=== PATIENT | female | born 1935 | race Two or more races ===

== ENCOUNTER 2016-05-16 16:02 | Emergency (ER) | payer MEDICAID ==
[~2016-05-16] VITALS: Ht 162.6 cm; Wt 56.7 kg
--- NOTE | 2016-05-16 16:05 | NUR ---
BIB SELF FOR FALL AND ELBOW AND RIB PAIN, PATIENT IS VERBALLY RESPONSIVE, A/OX 4, FAMILY AT BEDSIDE, WILL CONTINUE TO MONITOR CLOSELY.
[2016-05-16] MEDS ORDERED: HYDROCODONE/APAP 5/325MG 1 EACH TABLET ONE (16:26)
[2016-05-16] MEDS ORDERED: ONDANSETRON 4 MG TAB.RAPDIS ONE (16:26)
[2016-05-16] MEDS: ONDANSETRON 4 MG TAB.RAPDIS SL ONE (16:33)
[2016-05-16] MEDS: HYDROCODONE/APAP 5/325MG 1 EACH TABLET PO ONE (16:33)
[2016-05-16 17:54] VITALS: BP 146/87
--- NOTE | 2016-05-16 17:54 | NUR ---
Patient discharged to home in stable condition. Written and verbal after care instructions given. Patient verbalizes understanding of instruction.
== END 2016-05-16 17:55 | disposition home or self-care (01) ==
LOC: ER 16:09
DX: S20.211A Contusion of right front wall of thorax, initial encounter (principal); S50.01XA Contusion of right elbow, initial encounter; W01.0XXA Fall on same level from slipping, tripping and stumbling without subsequent striking against object, initial encounter; Y92.89 Other specified places as the place of occurrence of the external cause; Y93.89 Activity, other specified; Y99.8 Other external cause status
CPT/HCPCS: 71250-TC; 73080-TC; A4606; Q0162; Z7610

== ENCOUNTER 2017-10-14 11:58 | Inpatient (IN) | payer MEDICAID ==
[~2017-10-14] VITALS: Ht 157.5 cm; Wt 50.8 kg
[2017-10-14] MEDS ORDERED: IV NS 0.9% 1,000 ML BAG IV ONE (12:30)
[2017-10-14 13:12] LABS: CALCIUM, SERUM 8.9 mg/dL (8.5-10.1); CARBON DIOXIDE 30 mmol/L (21-32); CHLORIDE 104 mmol/L (98-107); CREATININE 1.1 mg/dL (0.6-1.3); GLUCOSE 101 mg/dL (74-106); POTASSIUM 3.9 mmol/L (3.5-5.1); SODIUM SERUM 138 mmol/L (136-145); UREA NITROGEN, BLOOD 25 mg/dL (7-18)
[2017-10-14 13:13] LABS: WHITE BLOOD COUNT (AUTO) 1.7 K/uL (4.3-11.0)
[2017-10-14 13:14] LABS: HEMATOCRIT 20 % (33-45); HEMOGLOBIN 6.5 g/dL (11.5-14.8)
[2017-10-14 13:19] LABS: MEAN CORPUSCULAR HEMOGLOBIN 41 PG (26.0-33.0); MEAN CORPUSCULAR HGB CONC 33 g/dl (31.0-36.0); MEAN CORPUSCULAR VOLUME 122 fL (82-100); NEUTROPHILS % (AUTO) 64.4 % (43.0-81.0); PLATELET COUNT (AUTO) 130 /CMM (150-450); RDW COEFFICIENT OF VARIATION 18.8 (11.5-15.0)
[2017-10-14 13:20] LABS: BASOPHILS % (AUTO) 1.6 % (0.0-2.0); EOSINOPHILS % (AUTO) 2.7 % (0.0-6.0); LYMPHOCYTES % (AUTO) 25.7 % (20.0-44.0); MONOCYTES % (AUTO) 5.6 % (2.0-12.0)
[2017-10-14 13:21] LABS: TROPONIN I < 0.017 ng/mL (0.00-0.056)
[2017-10-14 13:52] LABS: BAND % (MANUAL) 7 % (0.0-5.0); EOSINOPHILS % (MANUAL) 2 % (0-4); LYMPHOCYTES % (MANUAL) 24 % (16-48); MONOCYTES % (MANUAL) 3 % (0-11.0); NEUTROPHILS % (MANUAL) 64 (42-76)
[2017-10-14] MEDS ORDERED: CARV6.252 PO (15:20)
[2017-10-14] MEDS ORDERED: CALC0.253 PO (15:20)
[2017-10-14] MEDS ORDERED: FOLI1TAB16 PO (15:20)
[2017-10-14] MEDS ORDERED: LEVO75TA7 PO (15:20)
[2017-10-14] MEDS ORDERED: PENI500T PO (15:20)
[2017-10-14 16:00] VITALS: BP 145/65
[2017-10-14] MEDS ORDERED: HYDROCODONE/APAP 5/325MG 1 EACH TABLET PO PRN (16:30)
[2017-10-14] MEDS ORDERED: MAGNESIUM HYDROXIDE 30 ML UDC PO PRN (16:30)
[2017-10-14] MEDS ORDERED: MAG HYDROX/AL HYDROX/SIMETH 30 ML UDC PO PRN (16:30)
[2017-10-14] MEDS ORDERED: ACETAMINOPHEN 325 MG TABLET PO PRN (16:30)
[2017-10-14] MEDS ORDERED: Z GUARD REMEDY 2 OZ OINT TP PRN (16:30)
[2017-10-14] MEDS ORDERED: ONDANSETRON HCL/PF 4 MG/2 ML VIAL IVP PRN (16:30)
[2017-10-14] MEDS: PENICILLIN V POTASSIUM 500 MG TABLET PO SCH (17:00)
[2017-10-14] MEDS: IV NS 0.9% 1,000 ML IV PRN (17:32)
[2017-10-14] MEDS: CARVEDILOL 6.25 MG TABLET PO SCH (17:39)
[2017-10-14 20:00] VITALS: BP 123/55
[2017-10-14 21:23] LABS: BILIRUBIN,DIRECT 0.4 mg/dL (0.0-0.2); BILIRUBIN,TOTAL 1.3 mg/dL (0.2-1.0); TOTAL PROTEIN, SERUM 6.2 g/dL (6.4-8.2)
[2017-10-15] VITALS (9 sets, daily range): BP systolic 118–146; BP diastolic 49–70
[2017-10-15] MEDS: IV NS 0.9% 1,000 ML IV PRN (05:01)
[2017-10-15 06:08] LABS: APPEARANCE,URINE CLEAR (CLEAR); BILIRUBIN,URINE NEGATIVE (NEGATIVE); BLOOD, URINE NEGATIVE Ery/uL (NEGATIVE); COLOR,URINE YELLOW (YELLOW); KETONES,URINE NEGATIVE (NEGATIVE); LEUKOCYTE ESTERASE ,URINE NEGATIVE (NEGATIVE); NITRITE, URINE NEGATIVE (NEGATIVE); PROTEIN,URINE NEGATIVE (NEGATIVE); UGLUCOSE NEGATIVE (NEGATIVE)
[2017-10-15 06:31] LABS: BASOPHILS % (AUTO) 0.8 % (0.0-2.0); EOSINOPHILS % (AUTO) 3.9 % (0.0-6.0); LYMPHOCYTES # (AUTO) 0.4 /CMM (0.8-4.8); LYMPHOCYTES % (AUTO) 27.6 % (20.0-44.0); MEAN CORPUSCULAR HEMOGLOBIN 40 PG (26.0-33.0); MEAN CORPUSCULAR HGB CONC 32 g/dl (31.0-36.0); MEAN CORPUSCULAR VOLUME 123 fL (82-100); MONOCYTES # (AUTO) 0.1 /CMM (0.1-1.30); MONOCYTES % (AUTO) 7.3 % (2.0-12.0); NEUTROPHILS # (AUTO) 0.8 /CMM (1.8-8.9); NEUTROPHILS % (AUTO) 60.4 % (43.0-81.0); PLATELET COUNT (AUTO) 126 /CMM (150-450); RDW COEFFICIENT OF VARIATION 19.7 (11.5-15.0)
[2017-10-15 06:34] LABS: CALCIUM, SERUM 7.8 mg/dL (8.5-10.1); CARBON DIOXIDE 29 mmol/L (21-32); CHLORIDE 108 mmol/L (98-107); GLUCOSE 83 mg/dL (74-106); MAGNESIUM 1.8 mg/dL (1.8-2.4); PHOSPHORUS 3.7 mg/dL (2.5-4.9); POTASSIUM 4.1 mmol/L (3.5-5.1); SODIUM SERUM 142 mmol/L (136-145); UREA NITROGEN, BLOOD 25 mg/dL (7-18)
[2017-10-15 07:16] LABS: CHOLESTEROL 82 mg/dL (<200); HDL CHOLESTEROL 41 mg/dL (40-60); LDL 51 mg/dL (0-99); THYROID STIMULATING HORMONE 8.138 uIU/mL (0.358-3.74); TRIGLYCERIDES 37 mg/dL (30-150)
[2017-10-15 07:20] LABS: HEMATOCRIT 18 % (33-45); HEMOGLOBIN 5.7 g/dL (11.5-14.8); RED BLOOD CELL COUNT(AUTO) 1.44 MIL/uL (4.0-5.2); WHITE BLOOD COUNT (AUTO) 1.3 K/uL (4.3-11.0)
[2017-10-15] MEDS ORDERED: LEVOTHYROXINE SODIUM 75 MCG TABLET PO SCH (07:30)
[2017-10-15] MEDS ORDERED: PANTOPRAZOLE 40 MG TABLET.DR PO SCH (07:30)
[2017-10-15] MEDS: PENICILLIN V POTASSIUM 500 MG TABLET PO SCH ×2 (08:40→16:04)
[2017-10-15] MEDS: CARVEDILOL 6.25 MG TABLET PO SCH ×2 (08:43→16:04)
[2017-10-15] MEDS ORDERED: CALCITRIOL 0.25 MCG CAPSULE PO SCH (09:00)
[2017-10-15] MEDS ORDERED: FOLIC ACID 1 MG TABLET PO SCH ×2 (09:00→15:00)
[2017-10-15 09:39] LABS: EOSINOPHILS % (MANUAL) 2 % (0-4); LYMPHOCYTES % (MANUAL) 30 % (16-48); MONOCYTES % (MANUAL) 4 % (0-11.0); NEUTROPHILS % (MANUAL) 64 (42-76)
[2017-10-15 09:48] LABS: BACTERIA,URINE None seen /HPF (None Seen); RBC,URINE NONE SEEN /HPF (0-2); SQUAMOUS EPITHELIAL CELL,UR Few /HPF (None Seen); WBC,URINE NONE SEEN /HPF (0-3)
[2017-10-15] MEDS ORDERED: methylPREDNISolone SOD SUCC 125 MG/2ML VIAL IV SCH (15:00)
[2017-10-15 15:55] LABS: IRON, SERUM 107 ug/dl (50-175); TOTAL IRON BINDING CAPACITY 188 ug/dl (250-450)
[2017-10-15 16:25] LABS: FERRITIN 1368 ng/mL (8-388)
[2017-10-16] MEDS ORDERED: LEVOTHYROXINE SODIUM 88 MCG TABLET PO SCH (07:30)
== END 2017-10-15 17:57 | disposition home or self-care (01) | DRG 694 ==
LOC: ER 11:59 → TELE-TD 15:04
PROVIDERS: ADMIT Registered Nurse; ATTEND Registered Nurse
PROC: 30233N1 Transfusion of Nonautologous Red Blood Cells into Peripheral Vein, Percutaneous Approach (ICD-10-PCS; principal; 2017-10-15)
DX: D46.9 Myelodysplastic syndrome, unspecified (principal); E43 Unspecified severe protein-calorie malnutrition; D61.818 Other pancytopenia; E86.0 Dehydration; D59.5 Paroxysmal nocturnal hemoglobinuria [Marchiafava-Micheli]; E03.9 Hypothyroidism, unspecified; J06.9 Acute upper respiratory infection, unspecified; I10 Essential (primary) hypertension; Z68.20 Body mass index [BMI] 20.0-20.9, adult; R53.1 Weakness
CPT/HCPCS: 36415; 70450-TC; 71045-TC; 80048-TC; 80061-TC; 80076-TC; 81000-TC; 82728-TC; 82746; 83540-TC; 83605-TC; 83615-TC; 83735-TC; 84100-TC; 84443-TC; 84484-TC; 85025-TC; 85045-TC; 85730-TC; 86850-TC; 86921-TC; 87040-TC; 87081-TC; 87400; 93307-TC; 93880-TC; A4606; J7030; J7050; P9016-BL; Z7610

== ENCOUNTER 2019-02-05 10:11 | Inpatient (IN) | payer MEDICAID ==
[2019-02-05] VITALS (8 sets, daily range): BP systolic 89–119; BP diastolic 52–67
[~2019-02-05] VITALS: Ht 165.1 cm; Wt 49.4 kg
[~2019-02-05 10:11] MED LIST: CALC0.253 PO; CARV6.252 PO; FOLI1TAB16 PO; LEVO75TA7 PO; PENI500T PO
--- NOTE | 2019-02-05 10:14 | NUR ---
PT BIBRA FROM HOME C/O LEFT SHOULDER AND BACK PAIN, PT IS AAOX4, NOT IN RESPIRATORY DISTRESS, HOOKED TO MONITOR, KEPT RESTED AND COMFORTABLE, WILL CONTINUE TO MONITOR.
--- NOTE | 2019-02-05 10:24 | NUR ---
SEEN AND EXAMINED BY .
--- NOTE | 2019-02-05 10:35 | NUR ---
IV LINE ESTABLISHED, BLOOD DRAWN AND SENT TO LAB.
[2019-02-05 10:38] LABS: BASOPHILS % (AUTO) 1.6 % (0.0-2.0); EOSINOPHILS % (AUTO) 0.9 % (0.0-6.0); LYMPHOCYTES # (AUTO) 0.5 /CMM (0.8-4.8); LYMPHOCYTES % (AUTO) 17.5 % (20.0-44.0); MEAN CORPUSCULAR HGB CONC 33 g/dl (31.0-36.0); MEAN CORPUSCULAR VOLUME 106 fL (82-100); MONOCYTES % (AUTO) 0.3 % (2.0-12.0); NEUTROPHILS # (AUTO) 2.5 /CMM (1.8-8.9); NEUTROPHILS % (AUTO) 79.7 % (43.0-81.0); PLATELET COUNT (AUTO) 139 /CMM (150-450); WHITE BLOOD COUNT (AUTO) 3.1 K/uL (4.3-11.0)
[2019-02-05 10:44] LABS: RED BLOOD CELL COUNT(AUTO) 1.63 MIL/uL (4.0-5.2)
[2019-02-05 10:45] LABS: HEMATOCRIT 17 % (33-45); HEMOGLOBIN 5.6 g/dL (11.5-14.8)
[2019-02-05 10:52] LABS: ALANINE AMINOTRANSFERASE 21 U/L (12-78); ALBUMIN 3.6 g/dL (3.4-5.0); ALKALINE PHOSPHATASE 153 U/L (46-116); ASPARTATE AMINOTRANSFERASE 33 U/L (15-37); BILIRUBIN,DIRECT 0.6 mg/dL (0.0-0.2); BILIRUBIN,TOTAL 1.4 mg/dL (0.2-1.0); CALCIUM, SERUM 12.9 mg/dL (8.5-10.1); CARBON DIOXIDE 37 mmol/L (21-32); CHLORIDE 95 mmol/L (98-107); CREATININE 1.8 mg/dL (0.6-1.3); GLUCOSE 121 mg/dL (74-106); POTASSIUM 4.1 mmol/L (3.5-5.1); SODIUM SERUM 138 mmol/L (136-145); TOTAL PROTEIN, SERUM 6.7 g/dL (6.4-8.2)
[2019-02-05 10:54] LABS: UREA NITROGEN, BLOOD 89 mg/dL (7-18)
--- NOTE | 2019-02-05 11:00 | NUR ---
AT BEDSIDE FOR EVAL
--- NOTE | 2019-02-05 11:08 | NUR ---
PT IS WHEELED TO CT SCAN VIA [facility].
[2019-02-05] MEDS ORDERED: HYDROCODONE/APAP 5/325MG 1 EACH TABLET ONE ×2 (11:25→11:28)
[2019-02-05] MEDS ORDERED: SENN-168 PO (11:27)
[2019-02-05] MEDS ORDERED: METO25TA6 PO (11:27)
[2019-02-05] MEDS ORDERED: CHOL200026 PO (11:27)
[2019-02-05] MEDS ORDERED: METO50TA16 PO (11:27)
[2019-02-05] MEDS ORDERED: IV NS 0.9% 500 ML BAG IV ONE (11:30)
[2019-02-05] MEDS ORDERED: HYDROCODONE/APAP 5/325MG 1 EACH TABLET PO ONE (11:30)
[2019-02-05 11:34] LABS: BAND % (MANUAL) 10 % (0.0-5.0); BASOPHILS % (MANUAL) 1 % (0.0-2.0); EOSINOPHILS % (MANUAL) 1 % (0-4); LYMPHOCYTES % (MANUAL) 17 % (16-48); METAMYELOCYTES % 1 % (0-0); MONOCYTES % (MANUAL) 2 % (0-11.0); MYELOCYTES % 1 % (0-0); NEUTROPHILS % (MANUAL) 67 (42-76)
[2019-02-05] MEDS ORDERED: ONDANSETRON HCL/PF 4 MG/2 ML VIAL IVP PRN (12:00)
[2019-02-05] MEDS ORDERED: Z GUARD REMEDY 2 OZ OINT TP PRN (12:00)
[2019-02-05] MEDS ORDERED: MAGNESIUM HYDROXIDE 30 ML UDC PO PRN (12:00)
[2019-02-05] MEDS ORDERED: MAG HYDROX/AL HYDROX/SIMETH 30 ML UDC PO PRN (12:00)
--- NOTE | 2019-02-05 12:09 | NUR ---
REPORT GIVEN TO EMILIO LEACH FOR MARY.
[2019-02-05] MEDS: IV NS 0.9% 1,000 ML IV PRN (13:11)
[2019-02-05] MEDS: CHOLECALCIFEROL 1,000 UNIT TABLET (VIT D3) PO SCH (13:28)
--- NOTE | 2019-02-05 16:18 | NUR ---
GUEST SERVICES AGENT ADMITTING NOTES ADMITTED PT TO UNIT VIA GURNEY AT 1240 ACCOMPANIED BY ER NURSE WARD RAMON. PT IS A/O X4. ABLE TO MAKE NEEDS KNOW. PT ORIENTED TO ROOM AND STAFF. V/S TAKEN AND RECORDED. PHOTOS OF SKIN ISSUES TAKEN AND FILED IN CHART. PT PLACED ON 02 VIA N/C AT 2LPM, TOLERATING WELL WITH NO C/O SOB. ON TELE-MONITORING WITH CURRENT READING SHOWS A-FIB CONTROLLED, NO C/O CARDIAC DISTRESS VOICED. PT WITH IV ACCESS NOTED ON RAC G #18, IVF OF NS @ 100ML/HR STARTED PER MD ORDER. SAFETY MEASURES INITIATED. BED PLACED IN LOWEST LOCKED POSITION WITH SR UP X2. CALL LIGHT WITHIN EASY REACH OF PT. ADVISED PT TO CALL FOR STAFF WHEN OOB. WILL CONTINUE TO MONITOR PT ACCORDINGLY.
--- NOTE | 2019-02-05 16:37 | NUR ---
RN NOTES RECEIVED CALL FROM LAB THAT PT IS + FOR ANTIBODIES AND WILL TAKE TIME FOR THE RESULTS OF ANTIBODIES TO COME. DR MIGUEL MADE AWARE WITH ORDER TO CONTINUE MONITOR PT AND F/U WITH LAB WHEN BLOOD PRBC IS READY. WILL ENDORSE TO INCOMING SHIFT.
[2019-02-05] MEDS: PENICILLIN V POTASSIUM 500 MG TABLET PO SCH (16:51)
[2019-02-05] MEDS ORDERED: CARVEDILOL 6.25 MG TABLET PO SCH (17:00)
[2019-02-05] MEDS: METOPROLOL TARTRATE 25 MG TABLET PO SCH (17:26)
--- NOTE | 2019-02-05 18:15 | NUR ---
RN NOTES PT STARTED ON BLOOD TRANSFUSION OF1I BAG PRBC 289 ML TO RAC. PRE BLOOD TRANSFUSION V/S CHECKED; BP 98/53, P 90, R 18 ANT T 97.6F. WILL MONITOR FOR ANY ADVERSE/ALLERGIC REACTIONS.
--- NOTE | 2019-02-05 18:33 | NUR ---
RN NOTES PT ON BLOOD TRANSFUSION IN PROGRESS, NO ALLERGIC/ADVERSE REACTIONS LIKE FEVER, RASHES OR SOB NOTED AFTER 15MINUTES. WILL CONTINUE TO MONITOR
--- NOTE | 2019-02-05 18:45 | NUR ---
STORM DOOR MAKER CLOSING NOTES PT IN BED AWAKE AND WATCHING TV AT THIS TIME. A/O X4. ABLE TO MAKE NEEDS KNOW. ON 02 VIA N/C AT 2LPM, TOLERATING WELL WITH NO C/O SOB. ON TELE-MONITORING WITH CURRENT READING OF A-FIB CONTROLLED WITH HR ON THE 80'S AND 90'2, NO C/O CARDIAC DISTRESS VOICED. IV ACCESS ON RAC G #18, BLOOD TRANSFUSION IN PROGRESS, NO S/S OF INFILTRATIONS NOTED. ALL NEEDS AND CARE ATTENDED WELL. SAFETY MEASURES KEPT IN PLACE. BED IN LOWEST LOCKED POSITION WITH SR UP X2. CALL LIGHT WITHIN EASY REACH OF PT. BED ALARM ON. REMINDED PT TO CALL FOR STAFF WHEN OOB. WILL ENDORSE TO VIDEO ENGINEER NURSE FOR MARY AND TO COLLECT STOOL FOR OCCULT BLOOD. .
--- NOTE | 2019-02-05 19:05 | NUR ---
RN NOTES: RECEIVED AWAKE ON BED, A/OX4, BHUTANESE, ABLE TO COMMUNICATE IN WELL, ON SEMI FOWLERS POSITION ON O2 AT 2L/MIN VIA NC SPO2-100%, NO SOB OR ANY SIGN OF RESPIRATORY DEPRESSION, BT OF 1ST UNIT PRBC ONGOING, PER ENDORSEMENT RATE WAS INCREASE PATIENT TOLERATING WELL, WILL CONTINUE TO MONITOR FOR ANY BLOOD TRANSFUSION REACTION,RAC G#18 INTACT AND PATENT, ON TELE MONITOR A.FIB RATE-78, KEPT ON CLOSE WATCH.BED LOW AND LOCKED, CALL LIGHT WITHIN EASY REACH.
--- NOTE | 2019-02-05 21:00 | NUR ---
RN NOTES: AT 2100 1ST UNIT OF PRBC COMPLETED, PATIENT IS RELAX NO TRNASFUSION REACTION NOTED, NO HIVES, NO RASHES NOR FEVER, SHE JUST MENTIONED SHE HAD BACK PAIN BUT ITS SECONDARY TO HER FALL, RN OFFERED PAIN MEDICATION, SHE STRONGLY REFUSED SHE SAID "I WILL ONLY ASK IF I CANT TOLERATE IT BUT OF NOW I LL BE FINE, I WANNA SLEEP', V/S POST TRANSFUSION BP-119/67 IN-88 RR-18 T-97.5 SPO2-97% WITH O2 AT 2L/MIN. NO LABORED BREATHING NOR SOB. -EKG DONE BY RT, RESULT: ATRIAL FIB. WITH PREMATURE ABERANTLY CONDUCTED COMPLEXES, POSSIBLE ANT. INFARCT RATE-88. -ASYMPTOMATIC, NO CHEST PAIN OR DISCOMFORT, LOOKS RELAX AND NOT ANXIOUS.
--- NOTE | 2019-02-05 22:08 | NUR ---
RN NOTES: -EKG RESULT SHOWN TO (SOFTWARE SYSTEMS ANALYST) HE INSTRUCT TO CONTINUE MONITORING THE PATIENT, HE WAS NOTIFIED 1ST UNIT PRBC BLOOD TRANSFUSION COMPLETED AT 2100 AND FOR REPEAT H/H AT 2300.WILL CONTINUE TO MONITOR FOR ANY FURTHER SIGN OF BLEEDING.
[2019-02-05] MEDS: ACETAMINOPHEN 325 MG TABLET PO PRN (23:25)
--- NOTE | 2019-02-05 23:29 | NUR ---
RN NOTES: AWAKE, ASSISTED TO THE BATHROOM, ABLE TO PEE, NO HEMATURIA,NO SIGN OF BLEEDING NOTED.NO DIZZINESS SHE ONLY COMPLAINED OF PAIN AFTER SHE WALK GOING TO THE BATHROOM BACK TO HER BED, SHE AGREED TO TAKE HER PAIN MEDICATION; NON PHARMACOLOGIC INTERVENTION RENDERED, BACK RUB AND WARM BLANKET PROVIDED.
[2019-02-05 23:41] LABS: HEMOGLOBIN 6.2 g/dL (11.5-14.8)
[2019-02-06] VITALS (12 sets, daily range): BP systolic 90–110; BP diastolic 49–71
--- NOTE | 2019-02-06 01:19 | NUR ---
RN NOTES: -RECEIVED CALL FROM SOC AT AROUND 0000, HG-6.2 AND HCT-19, RELAYED TO ORDERED TO GIVE 2 MORE UNITS OF PRBC.
--- NOTE | 2019-02-06 02:11 | NUR ---
RN NOTES: PT STARTED ON BLOOD TRANSFUSION OF 2ND UNIT OF PRBC 342 ML TO RAC. TYPE A POSITIVE, UNIT# [id number] PRE BLOOD TRANSFUSION V/S CHECKED; BP-91/49, P-92, R-18 T-97.7F. WILL MONITOR FOR ANY ADVERSE/ALLERGIC REACTIONS.
--- NOTE | 2019-02-06 05:25 | NUR ---
RN NOTES: 2ND UNIT OF PRBC BT COMPLETED AT 0500, TOTAL OF 342 ML. NO HIVES, RASHES, HEADACHE OR ANY TRANSFUSION REACTION NOTED, NO SOB OR ANY DISCOMFORT, V/S BP-92/54 OH-80 RR-18 T-97.7.
[2019-02-06] MEDS: LEVOTHYROXINE SODIUM 75 MCG TABLET PO SCH (06:38)
[2019-02-06] MEDS: IV NS 0.9% 1,000 ML IV PRN ×2 (06:42→23:58)
--- NOTE | 2019-02-06 07:30 | NUR ---
CLAIM REPRESENTATIVE OPENING NOTES RECEIVED PT IN BED, AWAKE, A/O X3. PT ON SUPPLEMENTARY OXYGEN AT 2LPM, WITH NO ACUTE RESPIRATORY DISTRESS NOTED. PT DENIES ANY PAIN OR DISCOMFORT AT THIS TIME. ALSO DENIES ANY CONCERNS AND QUESTIONS AT THIS MOMENT. ON TELEMONITORING SR 70 WITH OCCASIONAL PVS, PACS AND AFIB, PT DENIES ANY CHEST PAIN. IVF NS AT 100ML/HR TO RAC G18, INTACT AND FLUID INFUSING WELL. PT KEPT COMFORTABLE. CALL LIGHT KEPT WITHIN REACH. PT'S BED IN LOWEST, LOCKED POSITION WITH SRX3. WILL CONTINUE PLAN OF CARE.
--- NOTE | 2019-02-06 07:38 | NUR ---
RN NOTES: THYROID MEDICINE GIVEN PER PATIENT REQUEST, STILL WITH ON AND OFF BACK PAIN, KEPT ON COMFORTABLE POSITION, REFUSE FOR STRONG PAIN MEDICATION.RAND ATTENDED, CALL LIGHT WITHIN EASY REACH, ENDORSED FOR CONTINUITY OF CARE.
[2019-02-06 07:57] LABS: EOSINOPHILS % (AUTO) 2.9 % (0.0-6.0); HEMATOCRIT 23 % (33-45); HEMOGLOBIN 7.6 g/dL (11.5-14.8); LYMPHOCYTES # (AUTO) 0.6 /CMM (0.8-4.8); LYMPHOCYTES % (AUTO) 23.7 % (20.0-44.0); MEAN CORPUSCULAR HGB CONC 34 g/dl (31.0-36.0); MEAN CORPUSCULAR VOLUME 97 fL (82-100); MONOCYTES # (AUTO) 0.2 /CMM (0.1-1.30); NEUTROPHILS # (AUTO) 1.6 /CMM (1.8-8.9); NEUTROPHILS % (AUTO) 63.4 % (43.0-81.0); PLATELET COUNT (AUTO) 122 /CMM (150-450); RED BLOOD CELL COUNT(AUTO) 2.34 MIL/uL (4.0-5.2); WHITE BLOOD COUNT (AUTO) 2.5 K/uL (4.3-11.0)
[2019-02-06 08:18] LABS: ALANINE AMINOTRANSFERASE 19 U/L (12-78); ALKALINE PHOSPHATASE 127 U/L (46-116); ASPARTATE AMINOTRANSFERASE 26 U/L (15-37); CALCIUM, SERUM 11.2 mg/dL (8.5-10.1); CARBON DIOXIDE 35 mmol/L (21-32); CHLORIDE 102 mmol/L (98-107); CREATININE 1.5 mg/dL (0.6-1.3); GLUCOSE 93 mg/dL (74-106); MAGNESIUM 2.6 mg/dL (1.8-2.4); PHOSPHORUS 4.1 mg/dL (2.5-4.9); POTASSIUM 4.4 mmol/L (3.5-5.1); SODIUM SERUM 141 mmol/L (136-145); UREA NITROGEN, BLOOD 75 mg/dL (7-18)
[2019-02-06 08:27] LABS: CHOLESTEROL 81 mg/dL (<200); HDL CHOLESTEROL 45 mg/dL (40-60); LDL 35 mg/dL (0-99); THYROID STIMULATING HORMONE 8.447 uIU/mL (0.358-3.74); TRIGLYCERIDES 37 mg/dL (30-150)
[2019-02-06] MEDS: CHOLECALCIFEROL 1,000 UNIT TABLET (VIT D3) PO SCH (08:43)
[2019-02-06] MEDS: PENICILLIN V POTASSIUM 500 MG TABLET PO SCH ×2 (08:43→17:26)
[2019-02-06] MEDS: FOLIC ACID 1 MG TABLET PO SCH (08:43)
[2019-02-06] MEDS: METOPROLOL TARTRATE 50 MG TABLET PO SCH (08:45)
[2019-02-06] MEDS ORDERED: CALCITRIOL 0.25 MCG CAPSULE PO SCH (09:00)
[2019-02-06] MEDS: ACETAMINOPHEN 325 MG TABLET PO PRN (09:02)
[2019-02-06] MEDS: SENNOSIDES 8.6 MG TABLET PO PRN (10:30)
--- NOTE | 2019-02-06 10:30 | NUR ---
RN NOTES HOSPITALIST/MD/ED INFORMED REGARDING RESULT OF HGB AND HCT OF PT AFTER 2UNITS PRBC, AWAITING FOR RESPONSE. HERMANN/STEFANIA MADE AWARE, STATED "NO INDICATION TO GIVE MORE." WILL CONTINUE TO MONITOR PT.
[2019-02-06 14:06] LABS: BAND % (MANUAL) 1 % (0.0-5.0); EOSINOPHILS % (MANUAL) 7 % (0-4); LYMPHOCYTES % (MANUAL) 21 % (16-48); MONOCYTES % (MANUAL) 10 % (0-11.0); NEUTROPHILS % (MANUAL) 61 (42-76)
--- NOTE | 2019-02-06 15:15 | NUR ---
RN NOTES PT IN PAIN 5/10 WHENEVER MOVING BACK AND FORTH TO THE BATHROOM. PT AND DAUGHTER AT BEDSIDE/MIGUEL PREFERS NOT TO TAKE ANY STRONG PAIN MEDICINE AT THIS TIME. PT REPOSITION IN THE BED AND HANDLED GENTLY. WILL CONTINUE TO MONITOR.
[2019-02-06] MEDS: METOPROLOL TARTRATE 25 MG TABLET PO SCH (17:26)
--- NOTE | 2019-02-06 18:34 | NUR ---
CUTTER BANANA ROOM CLOSING NOTES PT IN BED, AWAKE, A/O X3. PT ON SUPPLEMENTARY OXYGEN AT 2LPM, WITH NO ACUTE RESPIRATORY DISTRESS NOTED. PT DENIES ANY PAIN OR DISCOMFORT AT THIS TIME. ON TELEMONITORING SR 85 WITH OCCASIONAL PVS, PACS AND CONTROLLED AFIB; PT DENIES ANY CHEST PAIN. IVF NS AT 100ML/HR TO RAC G18, INTACT AND FLUID INFUSING WELL. PT KEPT COMFORTABLE. ALL NEEDS AND CARE ATTENDED AND PROVIDED. CALL LIGHT KEPT WITHIN REACH. PT'S BED IN LOWEST, LOCKED POSITION WITH SRX3. WILL ENDORSE TO INCOMING COMPUTER HELP DESK SPECIALIST NURSE FOR MARY.
--- NOTE | 2019-02-06 20:16 | NUR ---
PL SQL DEVELOPER NOTES RECEIVED PATIENT AWAKE IN BED WITH NO DISTRESS NOTED. CALL LIGHT WITHIN REACH. NO C/O PAIN OR DISCOMFORT. PERIPHERAL LINE INTACT AND PATENT. BED IN LOW LOCK SETTING. ROOM FREE OF CLUTTER AND ALL BELONGINGS KEPT NEAR BEDSIDE. WILL CONTINUE TO MONITOR.
[2019-02-06] MEDS: HYDROCODONE/APAP 5/325MG 1 EACH TABLET PO PRN (23:59)
[2019-02-07] VITALS: BP 108/62
[2019-02-07 04:00] VITALS: BP 111/69
--- NOTE | 2019-02-07 06:56 | NUR ---
PRETZEL PACKER NOTES PATIENT ASLEEP IN BED WITH NO DISTRESS NOTED. CALL LIGHT WITHIN REACH. ALL DUE MEDS GIVEN ORDERED WITH NO ASE. NO FURTHER C/O PAIN OR DISCOMFORT. PERIPHERAL LINE INTACT AND PATENT. BED IN LOW LOCK SETTING. ROOM FREE OF CLUTTER AND BELONGINGS KEPT NEAR BEDSIDE. BED ALARM ON AND FUNCTIONING PROPERLY. WILL ENDORSE TO ONCOMING SHIFT.
[2019-02-07 08:00] VITALS: BP 113/64
--- NOTE | 2019-02-07 08:00 | NUR ---
rotary drier Opening Notes Received pt in bed, awake, alert and oriented x 3. Pleasant singaporean speaking female. No cardiac or respiratory distress noted. Breath sounds clear, breathing even and unlabored. On playground monitor, pt has controlled Afib SR-99. Continent of b/b. IV site intact noted on R antecubital. IV site patent. PT was complaining of constipation, abdomen distended, using bediside commode. Call lights within reach. Needs attended and anticipated. Pt tolerated breakfast ate 75%. Continue monitoring. Pt was seen by the hospitalist,
[2019-02-07] MEDS ORDERED: MINERAL OIL 133 ML (PYXIS) 1 EA ENEMA RC ONE (09:00)
--- NOTE | 2019-02-07 09:00 | NUR ---
rn notes patient was constipated called hospitalist Dr Álvarez and get TO fleet enema, order taken and carried out.
[2019-02-07] MEDS: PENICILLIN V POTASSIUM 500 MG TABLET PO SCH ×2 (09:21→17:41)
[2019-02-07] MEDS: FUROSEMIDE 40 MG/4 ML VIAL IV SCH ×2 (09:21→17:00)
[2019-02-07] MEDS: FOLIC ACID 1 MG TABLET PO SCH (09:22)
[2019-02-07] MEDS: METOPROLOL TARTRATE 50 MG TABLET PO SCH (09:22)
[2019-02-07] MEDS: CHOLECALCIFEROL 1,000 UNIT TABLET (VIT D3) PO SCH (09:23)
[2019-02-07] MEDS: LEVOTHYROXINE SODIUM 75 MCG TABLET PO SCH (09:23)
--- NOTE | 2019-02-07 13:53 | NUR ---
RN NOTES ENEMA IS WORKED, PATIENT HAS A BOWEL MOVEMENT, COLLECTED STOOL SPECIMEN.
[2019-02-07 16:00] VITALS: BP 104/59
[2019-02-07] MEDS: METOPROLOL TARTRATE 25 MG TABLET PO SCH (17:24)
--- NOTE | 2019-02-07 18:00 | NUR ---
thermodynamics engineer Closing notes Pt in bed, awake, alert and oriented. Very pleasant. Cooperative with meds and treatments. 5pm lasix dose was help due to low blood pressure. Penicillin 500mg adminisitred. Tolerated well, with no ase noted. . 6pm Lopressor help due to low BP. Pt has no cardiac or respiratory distress noted at this time. In stable condition.
[2019-02-07 20:00] VITALS: BP 106/60
--- NOTE | 2019-02-07 20:51 | NUR ---
MIXED SIGNAL DESIGN ENGINEER NOTES PATIENT ASLEEP IN BED WITH NO DISTRESS NOTED. CALL LIGHT WITHIN REACH. PERIPHERAL LINE INTACT AND PATENT. BED IN LOW LOCK SETTING. ROOM FREE OF CLUTTER AND BELONGINGS KEPT NEAR BEDSIDE. BED ALARM ON AND FUNCTIONING PROPERLY. WILL CONTINUE TO MONITOR.
[2019-02-08] VITALS (7 sets, daily range): BP systolic 102–131; BP diastolic 63–82
--- NOTE | 2019-02-08 06:00 | NUR ---
ACCOUNT EXECUTIVE METALWORKING NOTES PATIENT ASLEEP IN BED WITH NO DISTRESS NOTED. CALL LIGHT WITHIN REACH. PERIPHERAL LINE INTACT AND PATENT. BED IN LOW LOCK SETTING WITH BED ALARM ON AND FUNCTIONING PROPERLY. ROOM FREE OF CLUTTER AND BELONGINGS KEPT NEAR BEDSIDE. WILL ENDORSE TO ONCOMING SHIFT
--- NOTE | 2019-02-08 07:00 | NUR ---
Tele/RN Opening note Pt received in bed, AOx 4, no distress or discomfort observed. Skin is warm and dry to touch, respiratory even and unlabored. Kept low position if bed with elevated HOB. Bed side commode right next pt bed. Call light within reach, will continue to monitor.
[2019-02-08 07:24] LABS: BASOPHILS % (AUTO) 0.7 % (0.0-2.0); EOSINOPHILS % (AUTO) 2.3 % (0.0-6.0); HEMATOCRIT 21 % (33-45); HEMOGLOBIN 7.1 g/dL (11.5-14.8); LYMPHOCYTES # (AUTO) 0.8 /CMM (0.8-4.8); LYMPHOCYTES % (AUTO) 25.2 % (20.0-44.0); MEAN CORPUSCULAR HGB CONC 33 g/dl (31.0-36.0); MEAN CORPUSCULAR VOLUME 99 fL (82-100); MONOCYTES # (AUTO) 0.2 /CMM (0.1-1.30); MONOCYTES % (AUTO) 7.8 % (2.0-12.0); NEUTROPHILS # (AUTO) 1.9 /CMM (1.8-8.9); PLATELET COUNT (AUTO) 124 /CMM (150-450); RED BLOOD CELL COUNT(AUTO) 2.16 MIL/uL (4.0-5.2)
[2019-02-08] MEDS: LEVOTHYROXINE SODIUM 75 MCG TABLET PO SCH (07:36)
[2019-02-08 07:37] LABS: CALCIUM, SERUM 9.5 mg/dL (8.5-10.1); CREATININE 1.3 mg/dL (0.6-1.3); MAGNESIUM 2.6 mg/dL (1.8-2.4); PHOSPHORUS 2.9 mg/dL (2.5-4.9)
[2019-02-08] MEDS: PENICILLIN V POTASSIUM 500 MG TABLET PO SCH ×2 (08:38→21:40)
[2019-02-08] MEDS: FUROSEMIDE 40 MG/4 ML VIAL IV SCH ×2 (08:38→17:14)
[2019-02-08] MEDS: CHOLECALCIFEROL 1,000 UNIT TABLET (VIT D3) PO SCH (08:38)
[2019-02-08] MEDS: FOLIC ACID 1 MG TABLET PO SCH (08:38)
[2019-02-08] MEDS: METOPROLOL TARTRATE 50 MG TABLET PO SCH ×2 (09:00→10:44)
--- NOTE | 2019-02-08 10:30 | NUR ---
RN NOTES D/C TELE PER SUPERVISOR METAL FURNITURE ASSEMBLY Dr MUÑIZ, TO THE MED/SURGE.
--- NOTE | 2019-02-08 11:34 | NUR ---
RN NOTES PATIENT O2 SATURATION GOING DOWN WITHOUT OXYGEN, NOTIFIED Dr MIGUEL AND GET NEW ORDER ONE UNIT OF BLOOD INFUSION, AND LASIX 40 MG AFTER BLOOD TRANSFUSION. ORDER TAKEN AND CARRIED OUT.
--- NOTE | 2019-02-08 12:55 | NUR ---
rn notes patient sign blood transfusion consent form.
[2019-02-08] MEDS ORDERED: FUROSEMIDE 40 MG/4 ML VIAL IV PRN (14:00)
[2019-02-08] MEDS: METOPROLOL TARTRATE 25 MG TABLET PO SCH (17:48)
--- NOTE | 2019-02-08 18:28 | NUR ---
MS/RN Closing note Pt in bed, no c/o pain or any discomfort. Pt is taking Metoprolol and tolerated. Skin is warm to touch, and clean/dry. Bed side commode at bed side, respiratory even and unlabored. PT. Hgb level 7.1 still waiting RBC from blood bank. Call light within reach, will endorse shift leader regarding above, continue to monitor.
--- NOTE | 2019-02-08 19:30 | NUR ---
RN PM OPENING NOTE BEDSIDE REPORT RECIEVED FROM SERAFIN JHAVERI. Pt in bed, AND DENIES discomfort. Skin is warm to touch, FALL RISK PRECAUTIONS IN PLACE BED ALARM ACTIVE. Bed side commode at bed side, respiratory RATE even and unlabored. PER REPORT Hgb level 7.1 AND ONE UNIT OF PRBC ARE STILL BEING PREPARED BY BY blood bank. Call light within reach, WILL continue to monitor.
[2019-02-09] VITALS (9 sets, daily range): BP systolic 95–120; BP diastolic 47–80
--- NOTE | 2019-02-09 02:50 | NUR ---
1 UNIT PRBC BLOOD TRANSFUSION COMPLETED blood completed 322 ml given to patient including 20 ml saline flush. patient denies any symptoms of blood transfusion rxn. states, "I just sleepy." vs did not stray from baseline. lasix give as ordered prn blood transfusion dose x1. will cont to monitor.
--- NOTE | 2019-02-09 03:05 | NUR ---
EMILIO PM OPENING NOTE BEDSIDE REPORT RECIEVED FROM SERAFIN JHAVERI. Pt in bed, AND DENIES discomfort. Skin is warm to touch, FALL RISK PRECAUTIONS IN PLACE BED ALARM ACTIVE. Bed side commode at bed side, respiratory RATE even and unlabored. PER REPORT Hgb level 7.1 AND ONE UNIT OF PRBC ARE STILL BEING PREPARED BY BY blood bank. Call light within reach, WILL continue to monitor. Addendum: 02/09/19 at 6 by MARGAUX BARBOUR RN PERFORMED AT 1929
[2019-02-09] MEDS: LEVOTHYROXINE SODIUM 75 MCG TABLET PO SCH (06:40)
--- NOTE | 2019-02-09 06:50 | NUR ---
RN PM CLOSING NOTE Pt in bed, DENIES discomfort. Skin is warm to touch, FALL RISK PRECAUTIONS IN PLACE BED ALARM ACTIVE. Bed side commode at bed side, respiratory RATE even and unlabored. PATIENT RECIEVED 1 UNIT OF PRBC LAST NOC. LABS TAKEN THIS AM. RESULTS ARE PENDING. PT STILL USING 2LNC. BED DOWN LOCKED SRX2 CALL LIGHT IN REACH.
--- NOTE | 2019-02-09 07:05 | NUR ---
MS RN OPENING NOTES RECEIVED PATIENT ASLEEP, AROUSABLE TO VERBAL AND TACTILE STIMULI. HOB ELEVATED. ON 02 2L/MIN VIA NC. DENIES ANY C/O PAIN NOR DISCOMFORT. BED IN LOWEST POSITION, LOCKED. BED ALARM ON. CALL LIGHT WITHIN REACH.
[2019-02-09 07:42] LABS: CALCIUM, SERUM 9.2 mg/dL (8.5-10.1); CREATININE 1.3 mg/dL (0.6-1.3); POTASSIUM 3.7 mmol/L (3.5-5.1)
[2019-02-09] MEDS: CHOLECALCIFEROL 1,000 UNIT TABLET (VIT D3) PO SCH (08:58)
[2019-02-09] MEDS: FOLIC ACID 1 MG TABLET PO SCH (08:59)
[2019-02-09] MEDS: PENICILLIN V POTASSIUM 500 MG TABLET PO SCH ×2 (08:59→20:34)
[2019-02-09] MEDS: FUROSEMIDE 40 MG/4 ML VIAL IV SCH ×2 (08:59→17:05)
[2019-02-09] MEDS: METOPROLOL TARTRATE 50 MG TABLET PO SCH (09:00)
--- NOTE | 2019-02-09 09:01 | NUR ---
MS RN NOTES HELD METOPROLOL B/P 96/56; HR 84
[2019-02-09 12:27] LABS: BASOPHILS % (AUTO) 1.2 % (0.0-2.0); HEMATOCRIT 29 % (33-45); HEMOGLOBIN 9.5 g/dL (11.5-14.8); LYMPHOCYTES # (AUTO) 0.7 /CMM (0.8-4.8); LYMPHOCYTES % (AUTO) 26.5 % (20.0-44.0); MEAN CORPUSCULAR HGB CONC 33 g/dl (31.0-36.0); MEAN CORPUSCULAR VOLUME 98 fL (82-100); MONOCYTES # (AUTO) 0.2 /CMM (0.1-1.30); MONOCYTES % (AUTO) 7.7 % (2.0-12.0); NEUTROPHILS # (AUTO) 1.6 /CMM (1.8-8.9); NEUTROPHILS % (AUTO) 60.6 % (43.0-81.0); PLATELET COUNT (AUTO) 143 /CMM (150-450); RED BLOOD CELL COUNT(AUTO) 2.94 MIL/uL (4.0-5.2); WHITE BLOOD COUNT (AUTO) 2.6 K/uL (4.3-11.0)
[2019-02-09] MEDS: METOPROLOL TARTRATE 25 MG TABLET PO SCH (17:06)
--- NOTE | 2019-02-09 18:44 | NUR ---
MS RN CLOSING NOTES ALERT AND ORIENTED X3. NO S/S OF RESPIRATORY DISTRESS. ON ROOM AIR WITH SPO2 92-94% DURING THE SHIFT. AMBULATORY WITH STEADY GAIT WITH THE USE OF ROLLATOR WALKER. REENFORCEMENT NEEDED WHEN PROVIDING EDUCATION. IV ACCESS INTACT AND PATENT. DENIES ANY C/O PAIN NOR DISCOMFORT. BED IN LOWEST POSITION, LOCKED. BED ALARM ON. CALL LIGHT WITHIN REACH. IN NO APPARENT DISTRESS.
[2019-02-09] MEDS: HYDROCODONE/APAP 5/325MG 1 EACH TABLET PO PRN (20:34)
--- NOTE | 2019-02-10 06:30 | NUR ---
MS RN PM CLOSING NOTES ALERT AND ORIENTED X3. NO S/S OF RESPIRATORY DISTRESS. PATIENT USED 1LNC LAST NOC WHILE SLEEPING. PT AWAKE AND CHECKED ON RA SHE IS SAT 95% DENIES SOB ENCOURAGED TO USE IS. IV ACCESS INTACT AND PATENT. DENIES ANY C/O PAIN NOR DISCOMFORT. BED IN LOWEST POSITION, LOCKED. PATIENT IS SITTING AT THE BEDSIDE. CALL LIGHT WITHIN REACH VERBALIZED UNDERSTANDING TO CALL IF SHE WANTS TO GET OUT OF BED.
[2019-02-10 06:41] LABS: BASOPHILS % (AUTO) 0.8 % (0.0-2.0); EOSINOPHILS % (AUTO) 5.8 % (0.0-6.0); HEMATOCRIT 29 % (33-45); HEMOGLOBIN 9.8 g/dL (11.5-14.8); LYMPHOCYTES # (AUTO) 0.7 /CMM (0.8-4.8); LYMPHOCYTES % (AUTO) 33.1 % (20.0-44.0); MEAN CORPUSCULAR HGB CONC 34 g/dl (31.0-36.0); MEAN CORPUSCULAR VOLUME 96 fL (82-100); MONOCYTES # (AUTO) 0.2 /CMM (0.1-1.30); MONOCYTES % (AUTO) 7.4 % (2.0-12.0); NEUTROPHILS # (AUTO) 1.1 /CMM (1.8-8.9); NEUTROPHILS % (AUTO) 52.9 % (43.0-81.0); PLATELET COUNT (AUTO) 151 /CMM (150-450); RED BLOOD CELL COUNT(AUTO) 2.98 MIL/uL (4.0-5.2); WHITE BLOOD COUNT (AUTO) 2.2 K/uL (4.3-11.0)
[2019-02-10] MEDS: LEVOTHYROXINE SODIUM 75 MCG TABLET PO SCH (06:55)
[2019-02-10 08:00] VITALS: BP 114/64
--- NOTE | 2019-02-10 08:00 | NUR ---
MS RN NOTES PATIENT IN BED RESTING NO SOB OR ACUTE DISTRESS NOTED. PATIENT JESSICA ANY PAIN OR DISCOMFORT. PATIENT ALERT, ORIENTED X3. BED IN LOW LOCKED POSITION. CALL LIGHT WITHIN REACH. WILL CONTINUE TO MONITOR.
[2019-02-10] MEDS: FUROSEMIDE 40 MG/4 ML VIAL IV SCH (08:23)
[2019-02-10] MEDS: FOLIC ACID 1 MG TABLET PO SCH (08:23)
[2019-02-10] MEDS: METOPROLOL TARTRATE 50 MG TABLET PO SCH (08:24)
[2019-02-10] MEDS: CHOLECALCIFEROL 1,000 UNIT TABLET (VIT D3) PO SCH (08:24)
[2019-02-10] MEDS: PENICILLIN V POTASSIUM 500 MG TABLET PO SCH ×2 (08:26→21:16)
--- NOTE | 2019-02-10 13:30 | NUR ---
MS RN NOTES PATIENT ABLE TO AMBULATE TO DOOR AND BACK WITH SOME SOB. O2 SATURATION CHECKED NOTED 91-92%. REPORTS FEELING WEAK.
[2019-02-10] MEDS: IV NS 0.9% 1,000 ML IV PRN (15:15)
[2019-02-10 16:00] VITALS: BP 104/63
[2019-02-10] MEDS: METOPROLOL TARTRATE 25 MG TABLET PO SCH (18:31)
[2019-02-10] MEDS: SENNOSIDES 8.6 MG TABLET PO PRN (18:35)
--- NOTE | 2019-02-10 19:03 | NUR ---
MS RN NOTES PATIENT IN BED RESTING NO SOB OR ACUTE DISTRESS NOTED. ALL DUE MEDICATIONS ADMINISTERED. ALL NEEDS MET. NO ACUTE CHANGES NOTED DURING SHIFT. BED IN LOW LOCKED POSITION , CALL LIGHT WITHIN REACH. WILL CONTINUE TO MONITOR.
--- NOTE | 2019-02-10 19:20 | NUR ---
MS RN RECEIVE PT IN BED A/O X 3 FAMILY AT BEDSIDE, NO SHORTNESS OF BREATH. STABLE AND NOT IN DISTRESS,SAFETY MEASURES IN PLACE. WILL CONTINUE TO MONITOR.
[2019-02-10 20:00] VITALS: BP 116/66
[2019-02-10] MEDS: ACETAMINOPHEN 325 MG TABLET PO PRN (23:31)
[2019-02-11] MEDS: IV NS 0.9% 1,000 ML IV PRN (05:43)
--- NOTE | 2019-02-11 06:15 | NUR ---
PT SLEPT WELL, NOT IN DISTRESS, 02 SAT AT 94% R.A. NO SIGNIFICANT CHANGES, AM CARE RENDERED, NEEDS ATTENDED AND ANTICIPATED. KEPT CLEAN, DRY AND COMFORTABLE AT ALL TIMES. GOOD SKIN CARE PROVIDED. SAFETY MEASURES IN PLACE. WILL ENDORSE NEXT SHIFT POC.
[2019-02-11 06:29] LABS: BASOPHILS % (AUTO) 1.2 % (0.0-2.0); HEMATOCRIT 28 % (33-45); HEMOGLOBIN 9.5 g/dL (11.5-14.8); LYMPHOCYTES # (AUTO) 0.7 /CMM (0.8-4.8); LYMPHOCYTES % (AUTO) 33.4 % (20.0-44.0); MEAN CORPUSCULAR HGB CONC 34 g/dl (31.0-36.0); MEAN CORPUSCULAR VOLUME 97 fL (82-100); MONOCYTES # (AUTO) 0.2 /CMM (0.1-1.30); MONOCYTES % (AUTO) 7.8 % (2.0-12.0); NEUTROPHILS # (AUTO) 1.1 /CMM (1.8-8.9); NEUTROPHILS % (AUTO) 52.6 % (43.0-81.0); PLATELET COUNT (AUTO) 146 /CMM (150-450); RED BLOOD CELL COUNT(AUTO) 2.92 MIL/uL (4.0-5.2); WHITE BLOOD COUNT (AUTO) 2.1 K/uL (4.3-11.0)
[2019-02-11 06:58] LABS: ALBUMIN 3.1 g/dL (3.4-5.0); BILIRUBIN,TOTAL 1.3 mg/dL (0.2-1.0); CALCIUM, SERUM 7.9 mg/dL (8.5-10.1); CREATININE 1.3 mg/dL (0.6-1.3); MAGNESIUM 2.3 mg/dL (1.8-2.4); PHOSPHORUS 3.8 mg/dL (2.5-4.9); POTASSIUM 3.5 mmol/L (3.5-5.1); TOTAL PROTEIN, SERUM 6.4 g/dL (6.4-8.2)
[2019-02-11] MEDS: LEVOTHYROXINE SODIUM 75 MCG TABLET PO SCH (07:30)
--- NOTE | 2019-02-11 07:55 | NUR ---
ms rn received on bed, awake,alert,oriented x3,not in any form of distress, respirations even and unlabored,no sob noted, lungs are diminished,abdomen soft,positive bowel sounds,denies pain at this time, will monitor patient.
[2019-02-11 08:00] VITALS: BP 122/70
--- NOTE | 2019-02-11 08:00 | NUR ---
ms rn patient refused synthroid , according to her, she takes it as early as 630 am, now its too late.
[2019-02-11] MEDS ORDERED: FUROSEMIDE 40 MG/4 ML VIAL IV SCH (09:00)
--- NOTE | 2019-02-11 09:20 | NUR ---
ms piper breakfast served,due meds given,tolerated well.
[2019-02-11] MEDS: METOPROLOL TARTRATE 50 MG TABLET PO SCH (09:55)
[2019-02-11] MEDS: FOLIC ACID 1 MG TABLET PO SCH (09:55)
[2019-02-11] MEDS: CHOLECALCIFEROL 1,000 UNIT TABLET (VIT D3) PO SCH (09:55)
[2019-02-11] MEDS: PENICILLIN V POTASSIUM 500 MG TABLET PO SCH (10:12)
--- NOTE | 2019-02-11 13:50 | NUR ---
ms paid intern called, pt will be picker feeder by daughter at 5 pm.
[2019-02-11 16:00] VITALS: BP 117/74
[2019-02-11 17:54] VITALS: BP 117/71
[2019-02-11] MEDS: METOPROLOL TARTRATE 25 MG TABLET PO SCH (17:54)
--- NOTE | 2019-02-11 18:42 | NUR ---
ms rn due meds given,tolerated well.patient being shrimp picker by daughter, discharge instruction given and understood,all needs attended.
== END 2019-02-11 18:40 | disposition home or self-care (01) | DRG 694 ==
LOC: ER 10:13 → TELE 11:35 → MED 02-08 10:44
PROVIDERS: ADMIT Internal Medicine; ATTEND Hospitalist
PROC: 30233P1 Transfusion of Nonautologous Frozen Red Cells into Peripheral Vein, Percutaneous Approach (ICD-10-PCS; principal; 2019-02-05)
DX: D46.9 Myelodysplastic syndrome, unspecified (principal); J96.01 Acute respiratory failure with hypoxia; E43 Unspecified severe protein-calorie malnutrition; N17.0 Acute kidney failure with tubular necrosis; D61.810 Antineoplastic chemotherapy induced pancytopenia; E88.09 Other disorders of plasma-protein metabolism, not elsewhere classified; E03.9 Hypothyroidism, unspecified; R07.81 Pleurodynia; W18.30XA Fall on same level, unspecified, initial encounter; Y92.89 Other specified places as the place of occurrence of the external cause; Z68.1 Body mass index [BMI] 19.9 or less, adult; E83.52 Hypercalcemia; R53.1 Weakness; T45.1X5A Adverse effect of antineoplastic and immunosuppressive drugs, initial encounter; I10 Essential (primary) hypertension
CPT/HCPCS: 36415; 71045-TC; 72131-TC; 73030-TC; 76770-TC; 80048-TC; 80053-TC; 80061-TC; 80076-TC; 83735-TC; 83970; 84100-TC; 84439-TC; 84443-TC; 84484-TC; 85025-TC; 85027-TC; 85730-TC; 86850-TC; 86921-TC; 87081-TC; 94799-TC; 97116-TC; 97530-TC; G0378; J1940; J7030; J7040; J7042; J7050; P9016-BL